=== PATIENT | male | born 1940 | race Caucasian/White ===

== ENCOUNTER 2017-01-30 14:33 | Observation (INO) | payer MEDICARE ==
[2017-01-30] VITALS (7 sets, daily range): BP systolic 96–144; BP diastolic 55–67; PULSE 67–79; RESP 13–20; O2SAT 94–99
[~2017-01-30] VITALS: Ht 172.7 cm; Wt 86.4 kg
--- NOTE | 2017-01-30 15:14 | ED.REPORT ---
HPI-General Illness Date of Service Jan 30, 2017 ED Provider: Lencho Zaldivar MD A 76 year old male with a history of hypertension and hyperlipidemia presents to the ED with intermittent episodes of mid-sternal, non-radiating, 2/10 chest tightness that initially began 4 days ago. He was seen by his PCP, Dr. Roberson, when he began to experience a brief episode of "heaviness" in his chest. His pain is exacerbated by deep breath but he denies any exacerbation associated with exertion. Symptoms associated with his episode of chest pain include lightheadedness, diaphoresis, SOB and dizziness has resolved upon arrival to the ED. He reports experiencing similar symptoms ~20 years ago that resolved without intervention and a clear etiology was not identified. Patient also endorses recent subjective fever and chills for the past few weeks. He denies any headache, neck stiffness, nausea, vomiting, visual disturbances, earache, abdominal pain, chest pain, shortness of breath, recent cough, diarrhea, constipation, lightheadedness, numbness/tingling or unilateral weakness. Nursing Notes Stated Complaint: CHEST PAIN, SHORTNESS OF BREATH Chief Complaint: Chest Pain Nursing Notes Reviewed: Yes General Time Seen by MD: 14:57 Chief Complaint Chest pain Hx Obtained From: Patient Arrived By: Walk-in Sudden in Onset?: No Onset Occurred: 4 days ago Symptom Duration: Intermittent Location: : Chest Quality: Heaviness (Tightness) Radiation: : Does not radiate Severity: Current: No pain currently Severity: Maximum: Pain level 2 out of 10 Associated with: Reports: Chest pain, Shortness of breath Pertinent Negative: Pt denies other symptoms Recent Healthcare: No recent hospitalization, Recent doctor visit Similar Sx Previous: Yes Past Medical History Past Medical History Hypertension Hyperlipidemia Past Surgical History None reported. Smoking History Unknown if Ever Smoker Social History Other Social History: Good social support, Local resident Ambulatory Status Independent Review of Systems Full Review of Systems Constitutional: Reports: Chills, Fever Eyes: Denies: Visual loss bilateral Ears / Nose / Throat: Denies: Earache bilateral Respiratory: Reports: Shortness of breath, Denies: Non-productive cough Cardiovascular: Reports: Chest pain GI: Denies: Abdominal pain, Constipation, Diarrhea, Nausea, Vomiting Male: Denies Dysuria Musculoskeletal: Denies: Neck pain Skin: Reports Diaphoresis Neurologic: Reports: Dizziness, Lightheaded, Denies: Headache, Numbness, Weakness Complete sys rev & neg: except as marked. Physical Exam Nursing note and vitals reviewed. Constitutional: Well-developed, well-nourished. Not diaphoretic. Head: Normocephalic and atraumatic. Mouth/Throat: Oropharynx is clear and moist. No oropharyngeal exudate. Eyes: EOM are normal. Pupils are equal, round, and reactive to light. Neck: Supple, no tracheal deviation. Cardiovascular: Normal rate, regular rhythm. Equal and intact distal pulses throughout. Pulmonary/Chest: Effort normal and breath sounds normal. No respiratory distress. Abdominal: Soft. No distension. There is no tenderness, rebound, or guarding. Musculoskeletal: Range of motion grossly intact, moving all extremities. No edema or tenderness appreciated. Neurological: AOx3. Grossly nonfocal exam. Strength and sensation intact and equal to bilateral upper and lower extremities. Skin: Mildly diaphoretic. Warm and moist. no rashes or pallor appreciated. Psychiatric: Appropriate mood and affect. Behavior appears normal. Vital Signs Vital Signs Date Time Temp Pulse Resp B/P Pulse Ox O2 Delivery O2 Flow Rate FiO2 01/30/17 14:46 36.8 79 14 96/58 97 Room Air Interpretation & Diagnostics Lab Results Interpretation Result Diagram: 01/30/17 1530 01/30/17 1530 Test 01/30/17 15:30 White Blood Count 4.8th/mm3 (3.8-10.1) Red Blood Count 4.11mil/mm3 (4.40-5.80) Hemoglobin 13.2g/dL (13.8-17.2) Hematocrit 37.7% (41.0-50.0) Mean Corpuscular Volume 91.7fL (81-100) Mean Corpuscular Hemoglobin 32.1pg (27.0-35.0) Mean Corpuscular Hemoglobin Concent 35.0% (32.0-37.0) Red Cell Distribution Width 13.5% (12.3-15.4) Platelet Count 223bil/L (150-400) Neutrophils (%) (Auto) 60.3% (40-74) Lymphocytes (%) (Auto) 25.5% (14-46) Monocytes (%) (Auto) 12.0% (4-12) Eosinophils (%) (Auto) 0.6% (0-5) Basophils (%) (Auto) 1.2% (0-3) D-Dimer < 0.50mg/L FEU (<0.50) Sodium Level 138mEq/L (134-144) Potassium Level 4.5mEq/L (3.5-5.2) Chloride Level 99mEq/L (97-108) Carbon Dioxide Level 28mmol/L (18-29) Blood Urea Nitrogen 26mg/dL (8-27) Creatinine 0.97mg/dL (0.76-1.27) Estimat Glomerular Filtration Rate 80mL/min (>59) Glucose Level 130mg/dL (60-99) Calcium Level 9.0mg/dL (8.5-10.1) Magnesium Level 2.1mg/dL (1.6-2.6) Total Bilirubin 0.3mg/dL (0.0-1.2) Aspartate Amino Transf (AST/SGOT) 17U/L (0-50) Alanine Aminotransferase (ALT/SGPT) 23U/L (0-44) Alkaline Phosphatase 69U/L (25-160) Troponin T < 0.010ug/L (0.0-0.011) Total Protein 6.0g/dL (6.4-8.4) Albumin 4.1g/dL (3.4-5.0) Hold Holland Top Tube Received (Received) ECG Interpretation ECG Interpretation: Sinus rhythm Rate 80 bpm Left anterior fasicular block Abnormal R wave progression No recent previous EKG for comparison Time: 15:29 Interpreted by: ED physician X-Ray Chest Interpretation Chest Xray Interpretation: IMPRESSION: No acute cardiopulmonary disease. Dictated by: Sugey Sousa M.D. on 01/30/2017 at 15:16 Interpretation / Wet Read by: Interpret - Radiologist Re-Eval/Medical Decision Med Decision/Clinical Course In summary, 76-year-old male with a history of hypertension, hyperlipidemia who presents to the ED for evaluation of substernal, nonradiating chest pain since earlier today, since resolved after administration of nitroglycerin. Differential includes ACS, PE, PTX, aortic dissection, myocarditis/pericarditis , abdominal etiology such as cholecystitis, MSK pain. Pain has been relieved since onset several hours ago, troponin negative. HEART score of 5. EKG demonstrates sinus rhythm with a left anterior fascicular block and abnormal R- wave progression; this was not present on EKG in 2009. With him having pleuritic symptoms, a d-dimer was obtained; this was negative. In the setting of reassuring vital signs and clinical presentation, PE seems unlikely. No evidence of pneumothorax on chest x-ray or exam. Pain not described as tearing through to the back, CXR w/ no evidence of widened mediastinum, normal neuro exam, and equal pulses to bilateral upper and lower extremities; aortic dissection seems very unlikely. Neither clinical presentation, exam, or EKG seem c/w pericarditis or myocarditis. No abdominal pain or tenderness. Rest of labs reviewed, unremarkable, including a CBC and CMP grossly within normal limits. Patient last had a stress test back in November 2015 and was unable to be completed secondary to him being unable to keep up on the treadmill, however no ischemic changes were noted in the brief test. Given the patient's risk, plan admission for further management and evaluation, likely stress test and echocardiogram. Patient given aspirin here in the ED. Patient agreeable to plan , no further questions. Time of Eval: 17:16 Patient Status: Condition improved Re-Evaluation/Progress Note: Patient is informed of his results and the plan to admit for observation and repeat stress test. Consultation : Referral / Consult Name: Kin Saldivar MD Consulted With: Hospitalist Junior Account Manager: Will see patient, Agrees with eval, Agrees with plan, Accepts admit Note: Discussed patient condition. Will accept admission to perform repeat stress test. Counseled Regarding: Diagnosis, Lab results, Need for admission Discharge & Departure Primary Impression: Chest pain Chest pain type: unspecified Qualified Code: R07.9 - Chest pain, unspecified Disposition: ADMITTED TO HOSPITAL Discharge Condition All VS Reviewed: Yes Condition: Stable Referrals: Ashleigh Roberson MD (PCP) Sheylaibjerilyn Attestation Portions of this note were transcribed by Swapna Thomason. I, Dr. Zaldivar personally performed the history, physical exam and medical decision-making; I reviewed and confirmed the accuracy of the information in the transcribed note. Signed by Angel Light, 01/30/17. copies to: Ashleigh Roberson MD, William B MD Jan 30, 2017 15:14 SWAPNA THOMASON Jan 30, 2017 15:32
--- NOTE | 2017-01-30 15:22 | DRSVH ---
PROCEDURE: X-RAY CHEST ONE VIEW, PORTABLE ([id number]) INDICATIONS: Chest pain TECHNIQUE: One view of the chest was acquired. COMPARISON: [facility], CR, XR CHEST 2VW, 02/07/2016, 9:33. [facility], CT , CT CHEST WO CON, 05/14/2016, 8:03. [facility], CT, CT ANGIO CHEST PE, 06/20/2016, 9:02. FINDINGS: Surgical changes and devices: Lower cervical spine fusion. Lungs and pleura: Longus are small likely secondary to shallow inspiration. No pleural effusions or pneumothorax. Lungs are clear. Mediastinum: Mediastinal contours appear normal. Heart size is normal. There is a lobulated contou r along the right cardiac border, likely due to difference in obliquity between exams. Bones and chest wall: No suspicious bony lesions. Overlying soft tissues appear unremarkable. Righ t rotator cuff tendon repair. IMPRESSION: No acute cardiopulmonary disease. Dictated by: Sugey Sousa M.D. on 01/30/2017 at 15:16 Approved by: Sugey Sousa M.D. on 01/30/2017 at 15:20
[2017-01-30 15:37] LABS: BASOPHILS % (AUTO) 1.2 % (0-3); EOSINOPHILS % (AUTO) 0.6 % (0-5); Mean Corpuscular Hemoglobin 32.1 pg (27.0-35.0); Mean Corpuscular Volume 91.7 fL (81-100); NEUTROPHILS % (AUTO) 60.3 % (40-74); Platelet Count 223 bil/L (150-400)
[2017-01-30 16:15] LABS: Magnesium 2.1 mg/dL (1.6-2.6)
[2017-01-30 16:16] LABS: TROPONIN T < 0.010 ug/L (0.0-0.011)
[2017-01-30] MEDS ORDERED: Polyethylene Glycol (PEG) 17 Gm Powder PO PRN ×2 (18:00→19:40)
[2017-01-30] MEDS ORDERED: Alum-Mag Hydrox-Simeth 30 mL Suspension PO PRN (18:00)
[2017-01-30] MEDS ORDERED: Ondansetron 2 mg/mL 2 mL Inj IVPUSH PRN (18:00)
--- NOTE | 2017-01-30 18:08 | PCM.HPMED ---
Subjective Date of Service Jan 30, 2017 Primary Provider: Admitting Physician: Kin Saldivar MD Primary Care Physician: Ashleigh Roberson MD Attending Physician: Kin Saldivar MD Admit Status: From the Emergency Department, 23-Hour Observation Chief Complaint: On and off chest pain/2 month History of Present Illness: 76-year-old gentleman with past medical history of hypertension, hyperlipidemia came to emergency room due to intermittent chest pain for the last 2 months. He states he has been having intermittent chest pain for the last 2 months. Pain is retrosternal and epigastric, dull aching and " feels like a brick on your chest and you are breathing against it " . Pain comes every 1-2 weeks and last for 2-3 days.pain 3/10 , intermittent and lasts variable time . Sometimes lasts for minutes and sometimes may last all day. Did not notice any worsening with exertion. He occasionally has diaphoresis with pain. He has dyspnea for the last 2 months which gets worse with exertion and taking stairs . was seen by Dr Roberson PCP last week ,symptoms persisted ( slightly worsened in the last few days ) but respond to nitro and referred to ED stress test a year ago, ED course :unremarkable vitals and exam.EKG,CXR and initial trops unremarkable .no pain in ED Review of Systems: Comprehensive review of systems performed, pertinent positives and negatives included in history of present illness Allergies Coded Allergies: No Known Allergies (Verified Allergy, Unknown, 01/30/17) Home Medications albuterol inhaler alprazolam 0.25mg tid prn amytriptylline 10mg HS ASA 81 mg daily atrovent nasal spray HCTZ 25 mg daily lisinopril 40 mg /d lovastatin 40mg hs montelucast 10mg daily paroxetine 10mg /d tamsulosin 0.4mg dailytrazodone 100mg hs PMH Chronic asthmatic bronchitis Chronic ankle pain Cervical spondylosis and radiculopathy Hypertension BPH Hyperlipidemia Surgical History Multiple leg surgeries Family History Father at 54 due to heart attack Mother last week at 94 due to old age lost a 29-year-old daughter to barin cancer many years years ago Social History Hx Alcohol Use: Yes (50YEARS AGO) Hx Substance Use: No Smoking Status: Unknown if Ever Smoker Exam Vital Signs Vital Sign - Last Date Time Temp Pulse Resp B/P Pulse Ox O2 Delivery O2 Flow Rate FiO2 01/30/17 17:00 36.8 69 13 125/55 99 Room Air Exam Gen. patient is lying comfortably in hospital bed HEENT: Head is normocephalic atraumatic, Pupils equal and reactive, extraocular movements intact, Lungs clear to auscultation bilaterally Heart regular rate and rhythm without murmurs gallops or rubs Abdomen soft nontender without hepatosplenomegaly Extremities pulses are present dorsalis pedis posterior tibialis and radial. tSkin is warm and dry there are no rashes, Psych alert and oriented to person place and time Neuro cranial nerves II through XII are grossly intact Lymph: There is no lymphadenopathy appreciated in the cervical supra infraclavicular regions : no carrasquillo Lab and Diagnostics Result Diagram: 01/30/17 1530 01/30/17 1530 X-Rays, CTs and MRIs PROCEDURE: X-RAY CHEST ONE VIEW, PORTABLE ([id number]) INDICATIONS: Chest pain TECHNIQUE: One view of the chest was acquired. COMPARISON: [facility], CR, XR CHEST 2VW, 02/07/2016, 9:33. [facility], CT, CT CHEST WO CON, 05/14/2016, 8:03. [facility], CT, CT ANGIO CHEST PE, 06/20/2016, 9:02. FINDINGS: Surgical changes and devices: Lower cervical spine fusion. Lungs and pleura: Longus are small likely secondary to shallow inspiration. No pleural effusions or pneumothorax. Lungs are clear. Mediastinum: Mediastinal contours appear normal. Heart size is normal. There is a lobulated contour along the right cardiac border, likely due to difference in obliquity between exams. Bones and chest wall: No suspicious bony lesions. Overlying soft tissues appear unremarkable. Right rotator cuff tendon repair. IMPRESSION: No acute cardiopulmonary disease. Dictated by: Sugey Sousa M.D. on 01/30/2017 at 15:16 12-lead ECG SR,LBBB,unchanged from prior Assessment & Plan 76-year-old gentleman with past medical history of hypertension, hyperlipidemia came to emergency room due to intermittent chest pain for the last 2 months. # Chest pain,acute,poa -ACS unlikely -rsik factors:age,HTN,HLD,family history -EKG incomplete LBBB unchanged from prior, initial troponin negative,will trend -echo and stress test ordered -lipid panel in am -ASA daily , # HTN -continue home meds # HLD continue home lovastatin Observation full code copies to: Asheligh Roberson MD, Melaku MD Jan 30, 2017 18:08
[2017-01-30] MEDS ORDERED: ALBU8.5H2 INHALATION (18:12)
[2017-01-30] MEDS ORDERED: TAMS0.4C29 PO (18:12)
[2017-01-30] MEDS ORDERED: HYDR-3825 PO (18:12)
[2017-01-30] MEDS ORDERED: AZEL137S11 NS (18:12)
[2017-01-30] MEDS ORDERED: AMIT10TA6 PO (18:12)
[2017-01-30] MEDS ORDERED: POLY17PO2 PO (18:16)
[2017-01-30] MEDS ORDERED: SALI42GE MM (18:16)
[2017-01-30] MEDS ORDERED: IMI100 PO (18:16)
[2017-01-30] MEDS ORDERED: CLOB15CR2 TP (18:16)
[2017-01-30] MEDS ORDERED: FLUT15.88 NS (18:16)
[2017-01-30] MEDS ORDERED: PARO10TA2 PO (18:16)
[2017-01-30] MEDS ORDERED: MONT10TA23 PO (18:16)
[2017-01-30] MEDS ORDERED: TRAZ-115 PO (18:16)
[2017-01-30] MEDS ORDERED: ALPR0.254 PO (18:16)
[2017-01-30] MEDS ORDERED: LOVA40TA PO (18:19)
[2017-01-30] MEDS ORDERED: ASCO250T7 PO (18:19)
[2017-01-30] MEDS ORDERED: PSEU30CA2 PO (18:19)
[2017-01-30] MEDS ORDERED: ALBU2.5V4 INHALATION (18:21)
[2017-01-30] MEDS ORDERED: FLUT1BLS IH (18:21)
[2017-01-30] MEDS ORDERED: _Albuterol 2.5 mg/3 mL Neb NEB PRN (19:40)
[2017-01-30] MEDS ORDERED: Clobetasol Prop 0.05% 15 Gm Ointment TOPICAL PRN (19:40)
[2017-01-30] MEDS ORDERED: Albuterol 2.5 mg/3 mL Inhalation Solution NEB PRN (19:55)
[2017-01-30] MEDS ORDERED: [UNRECOGNIZED DRUG - REMARK] MM SCH (20:30)
[2017-01-30] MEDS: Albuterol 2.5 mg/3 mL Inhalation Solution NEB SCH (20:30)
[2017-01-30] MEDS ORDERED: ALPRAZolam 0.25 mg Tablet PO SCH (21:00)
[2017-01-30] MEDS: Fluticasone-Salmererol 250-50 Inhaler INHALATION SCH (21:05)
[2017-01-30] MEDS: HYDROcodone-APAP 7.5-325 mg Tablet PO SCH (21:07)
--- NOTE | 2017-01-30 23:06 | NUR ---
Admit to room 3019 @20:00 for Chest Pain. Headache pain 3/10, VSS 98% on RA bp 144/57, 78pulse. Oriented to room and POC on whiteboard. Non-slip socks on with bedalarm for fall hx and dizzyness.
--- NOTE | 2017-01-30 23:08 | NUR ---
Med Rec completed in ED.
[2017-01-31 03:17] LABS: APPEARANCE,URINE CLEAR (CLEAR,HAZY); COLOR,URINE YELLOW (YELLOW); OCCULT BLOOD,URINE NEGATIVE (NEGATIVE); UROBILINOGEN,URINE NORMAL (NORMAL)
[2017-01-31 04:15] VITALS: BP 150/68; PULSE 72; RESP 16; O2SAT 95
[2017-01-31 05:59] VITALS: PULSE 89
[2017-01-31 06:24] LABS: BASOPHILS % (AUTO) 1.5 % (0-3); EOSINOPHILS % (AUTO) 1.1 % (0-5); MONOCYTES % (AUTO) 9.2 % (4-12); Mean Corpuscular Hemoglobin 31.9 pg (27.0-35.0); NEUTROPHILS % (AUTO) 56.7 % (40-74); Platelet Count 206 bil/L (150-400)
[2017-01-31 06:43] LABS: TROPONIN T 0.01 ug/L (0.0-0.011)
[2017-01-31 06:54] LABS: Magnesium 1.9 mg/dL (1.6-2.6)
[2017-01-31] MEDS: Albuterol 2.5 mg/3 mL Inhalation Solution NEB SCH (07:24)
[2017-01-31 07:25] VITALS: PULSE 48; RESP 22; O2SAT 97
[2017-01-31] MEDS: Fluticasone-Salmererol 250-50 Inhaler INHALATION SCH (07:56)
[2017-01-31] MEDS: HYDROcodone-APAP 7.5-325 mg Tablet PO SCH ×2 (07:56→15:00)
[2017-01-31] MEDS: Ascorbic Acid 500 mg Tablet PO SCH ×2 (07:56→15:00)
[2017-01-31] MEDS ORDERED: Artificial Tears 15 mL Ophthalmic Solution BOTH_EYES PRN (08:15)
[2017-01-31] MEDS ORDERED: Sodium Chloride 44 mL Nasal Drops NASAL PRN (08:15)
[2017-01-31] MEDS ORDERED: Fluticasone 0.05% 15 Spray/2 Gm 16 Gm Nasal Spray NASAL SCH (08:30)
[2017-01-31] MEDS ORDERED: PARoxetine 20 mg Tablet PO SCH (08:30)
[2017-01-31] MEDS ORDERED: Pantoprazole 20 mg ER24 Tablet PO SCH (08:30)
[2017-01-31 10:00] VITALS: PULSE 70
--- NOTE | 2017-01-31 10:10 | NUR ---
Off floor Pt off floor for stress test. Tele removed. cnc service technician aware. Pt transported via wheelchair. Addendum: 01/31/17 at 1239 by BHAVESH VILLARREAL RN Pt arrived back from Stress test around 1150. Pt back on tele. Diet orders changed to cardiac diet per M.D orders.
[2017-01-31 12:15] VITALS: BP 141/60; PULSE 79; RESP 16; O2SAT 93
--- NOTE | 2017-01-31 13:38 | NUR ---
Social Work: Initial Assessment/Readiness for Discharge/Multidisciplinary Rounds D: EMR reviewed. Please see initial assessment for further information. Pt is a 76 y/o male admitted K[facility] - no readmit risk score assigned - for chest pain per H&P. Pt's insurance is Medicare and AARP Supplemental. PCP is Ashleigh Roberson MD and [facility]. SW met with pt at bedside to conduct initial assessment. Pt was alert and oriented x3. SW explained role, wrote phone number on white board in room, provided [facility] Discharge Planning Checklist, and encouraged pt to call with any discharge planning questions. Pt has VA benefits and states he is 60% service connected. Pt does not have LTC insurance. Pt has hx at [facility] and with agency set up by [facility] for PT/OT/RN. Pt owns a walker which he uses on occasion. Pt is independent with ADLs. Pt drives. Pt has completed DPOA/advanced directive ppw and SW encouraged pt to provide a copy to the hospital once notarized. Pt's intended DPOA is [place] Mendez [phone]. Pt gave verbal consent to contact daughter for discharge planning. Pt lives at home with his spouse in a condo on the second level with 12 stairs to enter in [facility]. Pt states his Daughter Freida Mendez [phone] works at the hospital and will provide transport home when pt is ready. Pt discussed in multidisciplinary rounds and is medically stable for discharge home today, pending stress test and ECHO. No SW needs identified at this time, no MD orders received. SW asked if pt had any concerns/questions regarding discharge - pt does not have concerns. Pt requested that SW correctional program specialist call his daughter when discharge orders are placed. SW agreeable. SW encouraged pt to contact SW if questions arise. Pt agreeable to discharge plan. A: Pt who is independent at baseline and has capacity for self-care. P: Pt to discharge home today with daughter Freida to transport via POV. Pt does not have concerns regarding discharge at this time. SW to call daughter or inform RN to call daughter once discharge orders are placed. No other SW needs identified at this time, no MD orders received. SW will continue to follow for needs. TED Reynaga Addendum: 01/31/17 at 1345 by MISSY LEACH Amended: Links added.
--- NOTE | 2017-01-31 14:29 | NUR ---
Case Management: CHASITY given and explained to pt. Edie BARDALESRN
--- NOTE | 2017-01-31 14:31 | DRSVH ---
[facility] [address] [place] [address] Echocardiogram Report Name: PRESLEY BROCK DStudy Date: Height: 68 in Hospital Exam Location: [facility] Weight: 19 0 lb Gender: Male BSA: 2.0 m2 : 1940 Age: 76 yrs BP: 150/68 mmHg Reason For Study: Chest pain Ordering Physician: Ángel Eastman Performed By: Milly Wei Referring Physician: Dr. Ashleigh Roberson Interpretation Summary Left ventricular size is at the upper limits of normal. The ejection fraction is estimated to be 50-55%. There has been no significant change in LV EF since the previous study. The right ventricle is normal in size and function. No significant valvular pathology seen. The ascending aorta is moderately enlarged (Diameter has Increased from 3.8 cm to 4.2 cm). Procedure: A two-dimensional transthoracic echocardiogram with color flow and Doppler was performed. The study quality was technically adequate. Comparison is made with the echocardiogram of 12/20/2015. The patient was in normal sinus rhythm during the exam. The patient had occasional PVCs during the exam. Left Ventricle: Left ventricular size is at the upper limits of normal. Left ventricular wall thickness is normal. A false chord is noted (normal variant). The ejection fraction is estimated to be 50-55%. There has been no significant change since the previous study. Septal motion is consistent with conduction abnormality. Assessment of diastolic parameters indicates a relaxation abnormality of the left ventricle, consistent with normal filling pressures. Right Ventricle: The right ventricle is normal in size and function. Atria: Both atria are normal in size. Both atria have remained unchanged in size since the prior echo exam. There is no Doppler evidence for an interatrial shunt. Mitral Valve: There is mild mitral annular calcification. No significant mitral valve stenosis. There is trace mitral regurgitation. Aortic Valve: The aortic valve is trileaflet. The aortic valve opens well. There is discrete nodular thickening of the non- coronary cusp. The aortic valve is mildly calcified. There is no aortic valve stenosis. No aortic regurgitation is present. Tricuspid Valve: The tricuspid valve is not well visualized, but is grossly normal. Pulmonary artery pressures cannot be estimated because of the lack of a measurable TR jet velocity. There is trace tricuspid regurgitation. Pulmonic Valve: The pulmonic valve is not well seen, but is grossly normal. There is a trace or physiologic amount of pulmonic regurgitation. Great Vessels: The aortic root is normal size. The ascending aorta is moderately enlarged. The aortic arch is at the upper limits of normal in size. The IVC is of normal diameter and collapses greater than 50% with a sniff. This suggests a low right atrial pressure of 3 mm Hg. Pericardium/ Pleura There is no pericardial effusion. There is no pleural effusion. MMode/2D Measurements & Calculations LVIDd: 5.8 cm LVIDs: 4.1 cm LA A2 area: 20.7 cm FS: 28.9 % LA A4 area: 19.4 cm IVSd: 0.87 cm LA length (vol): 5.6 cm LVPWd: 0.87 cm LA vol: 61.1 ml LA vol index: 30.5 ml/m IVC diam: 2.1 cm RA long axis: 5.1 cm LVOT diam: 2.8 cm RA area: 15.7 cm Ao root diam: 3.4 cm RA vol: 41.4 ml Aortic Jxn: 2.7 cm RA : 20.7 ml/m2 asc Aorta Diam: 4.2 cm Ao Arch Diam (Prox Trans): 3.2 cm LV rothman. diameter/BSA (cm/m^2): 2.9 LV sys. diameter/BSA (cm/m^2): 2.0 RVD1 (basal): 3.8 cm TAPSE: 2.6 cm Doppler Measurements & Calculations Ao V2 max: 125.5 cm/sec MV E max barrera: 70.3 cm/sec Ao max P.3 mmHg MV A max barrera: 109.8 cm/sec Ao mean P.6 mmHg MV P1/2t: 65.8 msec LVOT Max Barrera: 66.0 cm/sec CR(I,D): 3.2 cm sev ratio: 0.54 MV E/A: 0.64 PA V2 max: 97.0 cm/sec Med Peak E' Barrera: 5.2 cm/sec PA mean P.0 mmHg E/E' med: 13.4 PA Accel Time: 0.07 sec Lat Peak E' Barrera: 8.6 cm/sec E/E' lat: 8.1 E/e' average: 10.8 MV dec time: 0.22 sec MV P1/2t max barrera: 70.5 cm/sec MVA(P1/2t): 3.3 cm2 Ao V2 mean: 92.1 cm/sec LV V1 max P.7 mmHg Ao V2 VTI: 27.3 cm LV V1 VTI: 14.7 cm CR(V,D): 3.1 cm2 PA V2 mean: 69.0 cm/sec CR indexed to BSA (cm^2/m^2): 1.6 Reading Physician:CORA
--- NOTE | 2017-01-31 14:45 | PCM.DIMED ---
Discharge Instructions Date of Service Jan 31, 2017 Dates of Hospitalization Jan 30, 2017 at 17:48 Discharge Diagnosis Discharge Diagnosis # Chest pain,acute,poa -ACS unlikely, likely due to acid reflux/GERD # HTN, chronic # HLD, chronic #Reactive airway disease, chronic Diet Discharge Diet: Low fat, Low Sodium, Heart Healthy Activity Discharge Activity: Limited until seen by PCP Call your provider Call your provider for: Fever or Chills, Shortness of breath, Bleeding, Chest pain, Vomitting, Excessive diarrhea, Weakness (unilateral) Patient Instructions Patient Instructions You were hospitalized due to on and off chest/epigastric pain. Workup for heart disease is negative.EKG, echocardiogram, telemetry monitoring, stress test and markers/cardiac markers unremarkable.It seems pain is due to acid reflux/GERD . Please take Protonix 20 mg by mouth twice a day for 2 weeks. Please follow-up with PCP in 1 week. If symptoms persist you may need further workup to look for source of pain which includes endoscopy and CT scan of abdomen and chest. Follow-up Provider: Ashleigh Roberson MD Follow-up with PCP in: 1 week Kin Saldivar MD Jan 31, 2017 14:45
[2017-01-31] MEDS ORDERED: ASPI-973 PO (14:48)
[2017-01-31] MEDS ORDERED: PANT20T PO (14:49)
--- NOTE | 2017-01-31 15:37 | NUR ---
Discharge IV removed. Tele removed. Reviewed discharge instructions all questions answered. Pt picked up by daughter and escorted via wheelchair. Pt aware of follow up plan with PCP.
--- NOTE | 2017-01-31 16:12 | DRSVH ---
PROCEDURE: EITHER REST OR STRESS ONLY. Pharmacological stress myocardial perfusion SPECT with gated imaging and ejection fraction. RADIOPHARMACEUTICAL: 24.1 mCi of Tc-99m tetrofosmin intravenously at peak pharmacologic stress. INDICATIONS: CHEST PAIN TECHNIQUE: Radiopharmaceutical was injected at peak stress test. SPECT images were obtained. SPECT myocardial perfusion images were displayed in short axis, horizontal long axis, and vertical long ax is views. Gated images were reviewed using Auto[employer] software. COMPARISON: None. CARDIAC STRESS: A pharmacologic stress test was performed under the supervision of attending staff u sing an infusion of Lexiscan as per protocol. Hemodynamic Data: There is normal blood pressure and heart rate response to pharmacologic stress. Symptoms: The patient had some chest pain, headache, and flushing during Lexiscan infusion, which re solved in the recovery period. Aminophylline: No aminophylline was given. EKG: Baseline rhythm was sinus with left anterior fascicular block. There were no obvious inducible ischemic changes seen. The patient had intermittent PVCs and ventricular couplets without any ventr icular tachycardia. FINDINGS: Raw Data: There appeared to be increased subdiaphragmatic activity. Gated Study: Stress LV ejection fraction is 53% with stress LV end diastolic volume 104 mL. Myocardial perfusion: The stress supine images revealed large-size, moderately to severely decreased perfusion of inferior wall inferoapex extending into the basal inferoseptum as well as inferolateral wall. This significantly improved during prone images. However, prone images continued to have mil dly decreased perfusion of the distal inferolateral wall and basal inferoseptum. IMPRESSION: I will call this study likely a normal myocardial perfusion study as the stress supine d efects became significantly improved during prone images. There was increased subdiaphragmatic activ ity. Those segments do not have obvious wall motion abnormalities. Stress left ventricular ejection fraction was about 53%. Overall, this is a low-risk myocardial perfusion study. Clinical correlati on is recommended. Dictated by: Cm Arnold M.D. on 01/31/2017 at 13:56 Transcribed by: CHANELL on 01/31/2017 at 19:12 Approved by: Cm Arnold M.D. on 01/31/2017 at 17:29
--- NOTE | 2017-01-31 17:36 | NUR ---
Social Work: Discharge D: EMR reviewed. Pt is on day 1 of hospitalization. Pt's daughter was called once discharge orders placed to provide pt transport home. No SW needs identified, no MD orders received. A: Pt who is independent at baseline and has capacity for self-care. P: Pt discharged home with daughter Freida via POV. Pt did not have concerns regarding discharge. No SW needs identified, no MD orders received. TED [place]aga
[2017-01-31] MEDS ORDERED: Fluticasone-Salmererol 250-50 Inhaler INHALATION SCH (20:30)
--- NOTE | 2017-01-31 23:35 | PCM.DC.MED ---
Discharge Summary Date of Service Jan 31, 2017 Dates of Hospitalization Date of Hospital Admission Jan 30, 2017 at 17:48 Date of Discharge: Jan 31, 2017 Providers: Admitting Physician: Kin Guerrero MD Primary Care Physician: Ashleigh Roberson MD Attending Physician: Kin Guerrero MD Diagnosis at Time of Discharge Diagnosis at Time of Discharge # Chest pain,acute,poa -ACS unlikely, likely due to acid reflux/GERD # HTN, chronic # HLD, chronic #Reactive airway disease, chronic Procedures XRay, CTs & MRIs PROCEDURE: X-RAY CHEST ONE VIEW, PORTABLE ([id number]) INDICATIONS: Chest pain TECHNIQUE: One view of the chest was acquired. COMPARISON: [facility], CR, XR CHEST 2VW, 02/07/2016, 9:33. [facility], CT, CT CHEST WO CON, 05/14/2016, 8:03. [facility], CT, CT ANGIO CHEST PE, 06/20/2016, 9:02. FINDINGS: Surgical changes and devices: Lower cervical spine fusion. Lungs and pleura: Longus are small likely secondary to shallow inspiration. No pleural effusions or pneumothorax. Lungs are clear. Mediastinum: Mediastinal contours appear normal. Heart size is normal. There is a lobulated contour along the right cardiac border, likely due to difference in obliquity between exams. Bones and chest wall: No suspicious bony lesions. Overlying soft tissues appear unremarkable. Right rotator cuff tendon repair. IMPRESSION: No acute cardiopulmonary disease. Dictated by: Sugey Sousa M.D. on 01/30/2017 at 15:16 ECG 12 Lead SR,LBBB,unchanged from prior Cardiac Echo Impression Interpretation Summary Left ventricular size is at the upper limits of normal. The ejection fraction is estimated to be 50-55%. There has been no significant change in LV EF since the previous study. The right ventricle is normal in size and function. No significant valvular pathology seen. The ascending aorta is moderately enlarged (Diameter has Increased from 3.8 cm to 4.2 cm). Other Diagnostics PROCEDURE: EITHER REST OR STRESS ONLY. Pharmacological stress myocardial perfusion SPECT with gated imaging and ejection fraction. RADIOPHARMACEUTICAL: 24.1 mCi of Tc-99m tetrofosmin intravenously at peak pharmacologic stress. INDICATIONS: CHEST PAIN TECHNIQUE: Radiopharmaceutical was injected at peak stress test. SPECT images were obtained. SPECT myocardial perfusion images were displayed in short axis, horizontal long axis, and vertical long axis views. Gated images were reviewed using Breather[employer] software. COMPARISON: None. CARDIAC STRESS: A pharmacologic stress test was performed under the supervision of attending staff using an infusion of Lexiscan as per protocol. Hemodynamic Data: There is normal blood pressure and heart rate response to pharmacologic stress. Symptoms: The patient had some chest pain, headache, and flushing during Lexiscan infusion, which resolved in the recovery period. Aminophylline: No aminophylline was given. EKG: Baseline rhythm was sinus with left anterior fascicular block. There were no obvious inducible ischemic changes seen. The patient had intermittent PVCs and ventricular couplets without any ventricular tachycardia. FINDINGS: Raw Data: There appeared to be increased subdiaphragmatic activity. Gated Study: Stress LV ejection fraction is 53% with stress LV end diastolic volume 104 mL. Myocardial perfusion: The stress supine images revealed large-size, moderately to severely decreased perfusion of inferior wall inferoapex extending into the basal inferoseptum as well as inferolateral wall. This significantly improved during prone images. However, prone images continued to have mildly decreased perfusion of the distal inferolateral wall and basal inferoseptum. IMPRESSION: I will call this study likely a normal myocardial perfusion study as the stress supine defects became significantly improved during prone images. There was increased subdiaphragmatic activity. Those segments do not have obvious wall motion abnormalities. Stress left ventricular ejection fraction was about 53%. Overall, this is a low-risk myocardial perfusion study. Clinical correlation is recommended. Dictated by: Cm Arnold M.D. on 01/31/2017 at 13:56 Brief History 76-year-old gentleman with past medical history of hypertension, hyperlipidemia came to emergency room due to intermittent chest pain for the last 2 months. He states he has been having intermittent chest pain for the last 2 months. Pain is retrosternal and epigastric, dull aching and " feels like a brick on your chest and you are breathing against it " . Pain comes every 1-2 weeks and last for 2-3 days.pain 3/10 , intermittent and lasts variable time . Sometimes lasts for minutes and sometimes may last all day. Did not notice any worsening with exertion. He occasionally has diaphoresis with pain. He has dyspnea for the last 2 months which gets worse with exertion and taking stairs . was seen by Dr Roberson PCP last week ,symptoms persisted ( slightly worsened in the last few days ) but respond to nitro and referred to ED stress test a year ago, ED course :unremarkable vitals and exam.EKG,CXR and initial trops unremarkable .no pain in ED Hospital Course 76-year-old gentleman with past medical history of hypertension, hyperlipidemia came to emergency room due to intermittent chest pain for the last 2 months. # Chest pain,acute,poa -ACS unlikely,likely GERD,discharged on protonix 20 bid -rsik factors:age,HTN,HLD,family history -EKG incomplete LBBB unchanged from prior, initial troponin negative,will trend -echo and stress test and discharged -continue ASA daily , # HTN -continue home meds # HLD continue home lovastatin discharged home Exam Vital Signs (Last) Date Time Temp Pulse Resp B/P Pulse Ox O2 Delivery O2 Flow Rate FiO2 01/31/17 12:15 36.7 79 16 141/60 93 Room Air Exam Gen. patient is lying comfortably in hospital bed HEENT: Head is normocephalic atraumatic, Pupils equal and reactive, extraocular movements intact, Lungs clear to auscultation bilaterally Heart regular rate and rhythm without murmurs gallops or rubs Abdomen soft nontender without hepatosplenomegaly Extremities pulses are present dorsalis pedis posterior tibialis and radial. tSkin is warm and dry there are no rashes, Psych alert and oriented to person place and time Neuro cranial nerves II through XII are grossly intact Lymph: There is no lymphadenopathy appreciated in the cervical supra infraclavicular regions : no carrasquillo Test 01/30/17 15:30 01/31/17 03:00 01/31/17 05:43 D-Dimer < 0.50mg/L FEU (<0.50) Hold [place] Top Tube Received (Received) Urine Color Yellow (YELLOW) Urine Appearance Clear (CLEAR,HAZY) Urine pH 6.0 (5.0-8.0) Urine Specific [place] 1.015 (1.003-1.035) Urine Protein Negativemg/dL (NEG,TRACE) Urine Glucose (UA) Negativemg/dL (NEGATIVE) Urine Ketones Negativemg/dL (NEGATIVE) Urine Occult Blood Negative (NEGATIVE) Urine Nitrite Negative (NEGATIVE) Urine Bilirubin Negative (NEGATIVE) Urine Urobilinogen Normalmg/dL (NORMAL) Urine Leukocyte Esterase Negative (NEGATIVE) Urine RBC 0-2/hpf (0-2) Urine WBC 0-5/hpf (0-5) Urine Epithelial Cells Occasional/hpf (NONE-MOD) Urine Crystals None seen (NONE SEEN) Urine Bacteria None/hpf (NONE-FEW) Urine Hyaline Casts None/lpf (NONE) Urine Granular Casts None seen (NONE SEEN) Urine Waxy Casts None seen (NONE SEEN) Urine Red Blood Cell Casts None seen (NONE SEEN) Urine White Blood Cell Casts None seen (NONE SEEN) Urine Mucus None seen (None Seen) Urine Trichomonas None seen (NONE SEEN) Urine Yeast None (NONE SEEN) Urinalysis Comment None Urine Culture Reflexed Not indicated White Blood Count 4.8th/mm3 (3.8-10.1) Red Blood Count 4.26mil/mm3 (4.40-5.80) Hemoglobin 13.6g/dL (13.8-17.2) Hematocrit 39.2% (41.0-50.0) Mean Corpuscular Volume 92.0fL (81-100) Mean Corpuscular Hemoglobin 31.9pg (27.0-35.0) Mean Corpuscular Hemoglobin Concent 34.7% (32.0-37.0) Red Cell Distribution Width 13.6% (12.3-15.4) Platelet Count 206bil/L (150-400) Neutrophils (%) (Auto) 56.7% (40-74) Lymphocytes (%) (Auto) 31.1% (14-46) Monocytes (%) (Auto) 9.2% (4-12) Eosinophils (%) (Auto) 1.1% (0-5) Basophils (%) (Auto) 1.5% (0-3) Sodium Level 138mEq/L (134-144) Potassium Level 4.3mEq/L (3.5-5.2) Chloride Level 100mEq/L (97-108) Carbon Dioxide Level 24mmol/L (18-29) Blood Urea Nitrogen 22mg/dL (8-27) Creatinine 0.85mg/dL (0.76-1.27) Estimat Glomerular Filtration Rate 93mL/min (>59) Glucose Level 107mg/dL (60-99) Calcium Level 8.8mg/dL (8.5-10.1) Magnesium Level 1.9mg/dL (1.6-2.6) Total Bilirubin 0.4mg/dL (0.0-1.2) Aspartate Amino Transf (AST/SGOT) 15U/L (0-50) Alanine Aminotransferase (ALT/SGPT) 21U/L (0-44) Alkaline Phosphatase 63U/L (25-160) Troponin T 0.010ug/L (0.0-0.011) Total Protein 5.6g/dL (6.4-8.4) Albumin 3.7g/dL (3.4-5.0) Triglycerides Level 56mg/dL (0-149) Cholesterol Level 172mg/dL (100-199) LDL Cholesterol, Calculated 65.800mg/dL (0-99) VLDL Cholesterol 11.200mg/dL HDL Cholesterol 95mg/dL (>39) Cholesterol/HDL Ratio 1.81 (0.0-4.4) Discharge Medications Discharge Medications Albuterol HFA (Proair HFA) 8.5 Gm Hfa.aer.ad 2 PUFFS INHALATION BID (Reported) Alprazolam (Alprazolam) 0.25 Mg Tablet 0.25 MG PO HS (Reported) Amitriptyline (Amitriptyline) 10 Mg Tablet 10 MG PO HS (Reported) Ascorbic Acid (Vitamin C) 250 Mg Tab.chew 500 MG PO TID (Reported) Aspirin (Aspirin) 81 Mg Tablet 81 MG PO DAILY Prescribed by: KIN GUERRERO MD Azelastine HCl (Azelastine HCl) 137 Mcg/0.137 Ml [place].pump 1 SPRAY NS BID ( Reported) Fluticasone Propionate (Fluticasone Propionate) 50 Mcg/Actuation [place].susp 1 SPRAY NS BID (Reported) Fluticasone/Vilanterol (Breo Ellipta 200-25 Mcg INH) 200 Mcg-25 Mcg/Dose Blst.w.dev 1 EACH IH QAM (Reported) Hydrocodone-Acetaminophen 7.5-325 mg (Hydrocodone-Acetaminophen 7.5-325 mg) 1 Each Tablet 1 TABLET PO TID (Reported) PLEASE GIVE WITH BIOTENE Lovastatin (Lovastatin) 40 Mg Tablet 40 MG PO HS (Reported) Montelukast (Montelukast) 10 Mg Tablet 10 MG PO HS (Reported) Pantoprazole DR (Protonix) 20 Mg Tablet 20 MG PO BID Prescribed by: KIN GUERRERO MD Paroxetine (Paroxetine) 10 Mg Tablet 10 MG PO QAM (Reported) Saliva Stimulant Comb. No.7 (Biotene Oralbalance) 42 Gm Gel..gram. 1 APPLIC MM TID (Reported) TAKE WITH NORCO FOR DRY MOUTH Tamsulosin ER (Tamsulosin ER) 0.4 Mg Cap.er.24h 0.8 MG PO HS (Reported) Trazodone (Trazodone) 50 Mg Tablet 100 MG PO HS (Reported) As needed Albuterol Neb Soln (Albuterol Neb Soln) 2.5 Mg/3 Ml Vial.neb 2.5 MG INHALATION Q4H PRN PRN For Shortness of Breath (Reported) Clobetasol Propionate (Clobetasol Propionate) 15 Gm Cream..g. 1 APPLIC TP BID PRN PRN RASH (Reported) Polyethylene Glycol 3350 (Polyethylene Glycol 3350) 17 Gm Powd.pack 17 GM PO DAILY PRN PRN For Constipation (Reported) Pseudoephedrine HCl (Nasal Decongestant) 30 Mg Capsule 30 MG PO BID PRN PRN For Congestion (Reported) Sumatriptan (Imitrex) 100 Mg Tablet 100 MG PO DAILY PRN PRN For Headache ( Reported) Followup Plan Disposition: home Discharge Diet: Low fat, Low Sodium, Heart Healthy Discharge Activity: Limited until seen by PCP Patient Instructions You were hospitalized due to on and off chest/epigastric pain. Workup for heart disease is negative.EKG, echocardiogram, telemetry monitoring, stress test and markers/cardiac markers unremarkable.It seems pain is due to acid reflux/GERD . Please take Protonix 20 mg by mouth twice a day for 2 weeks. Please follow-up with PCP in 1 week. If symptoms persist you may need further workup to look for source of pain which includes endoscopy and CT scan of abdomen and chest. Follow-up Provider: Ashleigh Roberson MD Follow-up with PCP in: 1 week copies to: Ashleigh Roberson MD, Melaku MD Jan 31, 2017 23:35
== END 2017-01-31 15:31 | disposition home or self-care (01) ==
LOC: EDBD 14:33 → SED 14:33 → EDUNIT# 14:33 → MPC 17:48
PROVIDERS: ADMIT Internal Medicine; ATTEND Internal Medicine
DX: R07.89 Other chest pain (principal); R06.09 Other forms of dyspnea; I10 Essential (primary) hypertension; E78.5 Hyperlipidemia, unspecified; N40.0 Benign prostatic hyperplasia without lower urinary tract symptoms; J45.909 Unspecified asthma, uncomplicated; Z79.82 Long term (current) use of aspirin
CPT/HCPCS: 36415; 71010; 78451; 80053; 80061; 81000; 83735; 84484; 85025; 85378; 93005; 93017; 94664; 99285; A9502; C8929; G0378; J2785